=== PATIENT | male | born 1980 | race Caucasian/White ===

== ENCOUNTER 2019-05-31 14:23 | Emergency (ER) | payer SELFPAY ==
[~2019-05-31] VITALS: Ht 165.1 cm; Wt 111.2 kg
[2019-05-31 14:36] VITALS: BP 147/88; PULSE 88; RESP 16; Ht 165.1 cm; Wt 111.2 kg
[2019-05-31] MEDS ORDERED: ACETAMINOPHEN 500 MG TAB PO STA (15:01)
[2019-05-31] MEDS ORDERED: LIDOCAINE 1% (MDV) 20 ML INJ SC ONE (15:30)
[2019-05-31] MEDS ORDERED: DIPHTH/TET/ACEL PERTUSS (ADULT) 0.5 ML VIAL IM* ONE (15:30)
[2019-05-31] MEDS ORDERED: ACET500C5 PO (16:11)
--- NOTE | 2019-05-31 16:18 | ERD ---
ER Documentation Chief Complaint Chief Complaint TV FELL ON HEAD. NO LOC. LACERATION HPI Patient is a 39-year-old male, presents the ER for concerns of laceration to his scalp. Laceration occurred prior to arrival. Patient denies any loss of consciousness however he reports feeling lightheaded. Patient states he was standing up below his TV to catch his pet parrot when he hit his head on the TV. Patient denies any vomiting. Patient states his last tetanus shot was 3 years ago. ROS All systems reviewed and are negative except as per history of present illness. Medications Home Meds Active Scripts Acetaminophen* (Tylophen*) 500 Mg Capsule, 1 CAP PO Q6H PRN for PAIN AND OR ELEVATED TEMP, #20 CAP Prov:BOB STUBBS PA-C 05/31/19 Allergies Allergies: Coded Allergies: No Known Allergy (Unverified , 05/31/19) PMhx/Soc Medical and Surgical Hx: pt denies Medical Hx, pt denies Surgical Hx Hx Alcohol Use: No Hx Substance Use: No Hx Tobacco Use: No Smoking Status: Never smoker FmHx Family History: No diabetes Physical Exam Vitals Vital Signs Date Temp Pulse Resp B/P (MAP) Pulse Ox O2 O2 Flow FiO2 Time Delivery Rate 05/31/19 99.3 88 16 147/88 98 14:36 (107) Physical Exam GENERAL: Well-developed, well-nourished male. Appears in no acute distress. HEAD: Normocephalic, atraumatic. EYES: Pupils are equally reactive bilaterally. EOMs grossly intact. No conjunctival erythema. No periorbital ecchymosis or swelling noted bilaterally. ENT: Moist mucous membranes. No uvula deviation. No kissing tonsils. No mastoid ecchymosis or swelling noted bilaterally. No hemotympanum noted bilaterally. Normal range of motion of the jaw. NECK: Supple. No meningismus. Normal range of motion of the neck. No cervical midline tenderness however tender to palpation of bilateral trapezius muscles. LUNG: Clear to auscultation bilaterally. No rhonchi, wheezing, rales or coarse breath sounds. HEART: Regular rate and rhythm. No murmurs, rubs or gallops. BACK: No midline tenderness. EXTREMITIES: Equal pulses bilaterally. No peripheral clubbing, cyanosis or edema. No unilateral leg swelling. NEUROLOGIC: Alert and oriented. Moving all four extremities without any diffic ulty. Normal speech. Steady gait. SKIN: 4 cm jagged laceration noted to the mid frontal scalp. Minimal active bleeding. Results 24 hrs Current Medications Medications Dose Sig/Antonio Start Time Status Last (Trade) Ordered Route PRN Stop Time Admin Dose Reason Admin Diphtheria/ 0.5 ml ONCE ONCE 05/31/19 DC 05/31/19 Tetanus/Acell IM* 15:30 15:21 Pertussis 05/31/19 15:31 (Adacel) 1,000 mg ONCE STAT 05/31/19 DC 05/31/19 Acetaminophen PO 15:01 15:20 (Tylenol 05/31/19 15:04 Tab) Lidocaine 20 ml ONCE ONCE 05/31/19 DC (Xylocaine SC 15:30 1% (Mdv) 20 05/31/19 15:31 ml) Procedures/MDM ED COURSE: The patient was stable throughout ED course. I kept the patient and/or family informed of laboratory and diagnostic imaging results throughout the ED course. DIAGNOSTIC IMAGING: Read by radiologist. DIAGNOSTIC IMAGING REPORT Patient: NATACHA MENDIETA : 1980 Age: 39 Sex: M MR #: [id number] DOS: 05/31/19 1501 Ordering MD: BOB STUBBS PA-C Location: [facility] Room/Bed: PROCEDURE: CT Brain without contrast. CLINICAL INDICATION: Head injury. Pain. TECHNIQUE: A CT of the brain without contrast was performed utilizing axial sections from the skull base through the vertex. One or more the following does reduction techniques were utilized: Automated exposure control, adjustment of the mA/ or kV according to patient's size, or use of iterative reconstruction technique. Total exam CTDIvol is 30 MGy and DLP is 634 mGy-cm. DICOM images are available. COMPARISON: None available. FINDINGS: The ventricles and sulci are age-appropriate. There is no intracranial hemorrhage, mass effect or midline shift. No abnormal intra-axial or extra- axial fluid collections are seen. The krishna/white matter differentiation is preserved. The visualized paranasal sinuses are essentially clear. Midline frontal scalp swelling is noted without underlying skull fracture. IMPRESSION: 1. No acute intracranial hemorrhage, transcortical infarction or mass effect. 2. Midline frontal scalp swelling is noted without underlying skull fracture. RPTAT: UU .Kenyatta Abdul MD, MD Date Time Electronically viewed and signed by .Kenyatta Abdul MD, MD on 05/31/2019 15:38 .N/ CC: BOB STUBBS PA-C [id number] Patient: NATACHA MENDIETA : 1980 Age: 39 Sex: M MR #: [id number] DOS: 05/31/19 1501 Ordering MD: BOB STUBBS PA-C Location: [facility] Room/Bed: PROCEDURE: CT Cervical Spine without contrast. CLINICAL INDICATION: Trauma. Neck pain. TECHNIQUE: Helical axial sections were obtained through the cervical spine without intravenous contrast enhancement. Sagittal and coronal reformatted images were accomplished using the data from the axial images. Total exam DLP is 550 mGy-cm. CTDIvol is 22 mGy. One or more of the following dose reduction techniques were used: Automated exposure control, adjustment of the mA and/or kV according to patient size, use of iterative reconstruction technique. DICOM images are available. COMPARISON: No prior studies are available for comparison. FINDINGS: There is normal stature and alignment of the vertebrae. There is no fracture. The disk height is normal. There is no lytic or blastic lesion. The paravertebral soft tissues are normal. IMPRESSION: 1. No acute fracture or subluxation. RPTAT: QQ Physician Deshawn Date Time Electronically viewed and signed by Physician Deshawn on 05/31/2019 15:54 RD/ CC: BOB STUBBS PA-C [id number] PROCEDURES: Laceration Repair: The patient was verbally consented prior to procedure. Patient was explained the risks, benefits and alternatives to this procedure. Length: 3 cm Irrigation: Thorough irrigation was performed with normal saline and adequate pressure. Inspection: The wound was thoroughly explored and no foreign bodies, deep tissue, tendon or structural injuries were noted. Anesthesia: 4 cc of 1% lidocaine, no epi Repair: The area was prepared and draped in the usual sterile manner with the wound exposed. 7 rex were placed with good wound closure and wound approximation. Bleeding was minimal. The patient tolerated the procedure well with no complications. The wound was dressed with bacitracin and sterile gauze. The patient was neurovascularly intact post-procedure. Post-procedural wound care was discussed with the patient. MEDICAL DECISION MAKING: This is a 39-year-old male who presents the ER for concerns of a scalp laceration which occurred prior to arrival. Patient denies any loss of consciousness.. Vital signs were reviewed. Patient was afebrile. Given that patient was feeling lightheaded, CT imaging and neck series was obtained. See formal report above. No evidence of intraconal hemorrhage, skull fracture, intracranial mass or mass-effect. Cervical spine was unremarkable. Laceration repair completed with rex. Patient had good wound closure and wound approximation. Patient tolerated procedure well without difficulties. Tetanus is up-to-date. Advised to return to the ER in 2 days for wound recheck. PRESCRIPTIONS: Tylenol DISCHARGE: At this time, the patient is stable for discharge and outpatient management. Post-procedural wound care was discussed with the patient. The patient has been advised to return to the ER in 2 days for a wound check and then again in [] days for suture removal. I have instructed the patient to promptly return to the ER for any new or worsening symptoms including increasing pain, fever, warmth, redness or swelling. The patient and/or family expressed understanding of and agreement with this plan. All questions were answered. Home care instructions were provided. Disclaimer: Inadvertent spelling and grammatical errors are likely due to EHR/dictation software use and do not reflect on the overall quality of patient care. Also, please note that the electronic time recorded on this note does not necessarily reflect the actual time of the patient encounter. Departure Diagnosis: Primary Impression: Laceration Additional Impression: Acute head injury Encounter type: initial encounter Qualified Codes: S09.90XA - Unspecified injury of head, initial encounter Condition: Fair Patient Instructions: Laceration, Scalp Referrals: [facility] YOU HAVE RECEIVED A MEDICAL SCREENING EXAM AND THE RESULTS INDICATE THAT YOU DO NOT HAVE A CONDITION THAT REQUIRES URGENT TREATMENT IN THE EMERGENCY DEPARTMENT. FURTHER EVALUATION AND TREATMENT OF YOUR CONDITION CAN WAIT UNTIL YOU ARE SEEN IN YOUR DOCTORS OFFICE WITHIN THE NEXT 1-2 DAYS. IT IS YOUR RESPONSIBILITY TO MAKE AN APPOINTMENT FOR FOLOW-UP CARE. IF YOU HAVE A PRIMARY DOCTOR --you should call your primary doctor and schedule an appointment IF YOU DO NOT HAVE A PRIMARY DOCTOR YOU CAN CALL OUR PHYSICIAN REFERRAL HOTLINE AT IF YOU CAN NOT AFFORD TO SEE A PHYSICIAN YOU CAN CHOSE FROM THE FOLLOWING [facility] [address] [facility] [address] [facility] [facility] [address] [facility] [address] [facility] [facility] [address] [facility]. [facility]. [address] [facility]. [facility] YOU HAVE RECEIVED A MEDICAL SCREENING EXAM AND THE RESULTS INDICATE THAT YOU DO NOT HAVE A CONDITION THAT REQUIRES URGENT TREATMENT IN THE EMERGENCY DEPARTMENT. FURTHER EVALUATION AND TREATMENT OF YOUR CONDITION CAN WAIT UNTIL YOU ARE SEEN IN YOUR DOCTORS OFFICE WITHIN THE NEXT 1-2 DAYS. IT IS YOUR RESPONSIBILITY TO MAKE AN APPOINTMENT FOR FOLOW-UP CARE. IF YOU HAVE A PRIMARY DOCTOR --you should call your primary doctor and schedule and appointment IF YOU DO NOT HAVE A PRIMARY DOCTOR YOU CAN CALL OUR PHYSICIAN REFERRAL HOTLINE AT . IF YOU CAN NOT AFFORD TO SEE A PHYSICIAN YOU CAN CHOSE FROM THE FOLLOWING [facility]: [facility] [address] [place] [address] [facility] [address] [place] [address] [facility] [address] [place] [address] Additional Instructions: Wound recheck advised in 2 days. Call your primary care doctor TOMORROW for an appointment during the next 1-2 days.See the doctor sooner or return here if your condition worsens before your appointment time. BOB STUBBS PA-C May 31, 2019 16:18
== END 2019-05-31 16:27 | disposition home or self-care (01) ==
LOC: FTE 14:23
DX: S01.01XA Laceration without foreign body of scalp, initial encounter (principal); W20.8XXA Other cause of strike by thrown, projected or falling object, initial encounter; Y92.9 Unspecified place or not applicable; Z23 Encounter for immunization
CPT/HCPCS: 70450; 72125; 90471; 90715